=== PATIENT | male | born 1965 | race Caucasian/White ===

== ENCOUNTER 2024-03-04 09:42 | Outpatient (AMB) | payer MEDICAID, SELFPAY ==
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
[2024-03-04 09:51] VITALS: BP 147/78; PULSE 100; RESP 18; TEMP 36.5; O2SAT 94; BMI 25.3
== END 2024-03-04 10:25 | disposition home or self-care (01) ==
LOC: HODSRG 09:42
PROVIDERS: PCP Nurse Practitioner Family; Referring Provider Nurse Practitioner Family; Supervising Provider Surgery; Visit Provider Surgery
DX: Z48.815 Encounter for surgical aftercare following surgery on the digestive system (principal); D12.6 Benign neoplasm of colon, unspecified
CPT/HCPCS: 99213; G0463

== ENCOUNTER → 2024-03-07 | Day surgery (SDC) | payer MEDICAID, SELFPAY ==
[2024-03-05 09:09] VITALS: BMI 25.2
[2024-03-05 10:28] LABS: Basophils % (Auto) 0 % (0-2.5); Eosinophils % (Auto) 0 % (0-10); Hematocrit 48.3 % (41.0-53.0); Hemoglobin 17.3 g/dL (13.5-16.0); Immature Granulocytes % (Auto) 0 % (0-0); Immature Granulocytes Auto 0.01 Thou/mm3 (0.00-0.00); Lymphocytes # (Auto) 0.7 Thou/mm3 (1.0-4.8); Lymphocytes % (Auto) 14 % (10-50); Mean Corpuscular HGB Conc 35.8 g/dl (31.0-37.0); Mean Corpuscular Hemoglobin 36.1 pg (25.0-35.0); Mean Corpuscular Volume 101 fL (80-100); Monocytes # (Auto) 0.7 Thou/mm3 (0.0-0.8); Monocytes % (Auto) 13 % (0-12); Neutrophils # (Auto) 3.7 Thou/mm3 (1.8-7.7); Neutrophils % (Auto) 72 % (37-80); Nucleated Red Blood Cell % 0 /100 WBC (0); Platelet Count 84 Thou/mm3 (140-440); RDW Standard Deviation 50.5 fL (35.1-43.9); Red Blood Count 4.79 Miln/mm3 (4.50-5.90); White Blood Count 5.1 Thou/mm3 (3.8-10.6)
[2024-03-05 10:30] LABS: INR 1.2 (0.9-1.3); Partial Thromboplastin Time 24.6 Seconds (22.0-36.0); Prothrombin Time 12.8 Seconds (9.0-12.2)
[2024-03-05 10:33] LABS: Alanine Aminotransferase 77 U/L (10-49); Albumin, Serum 4.5 gm/dL (3.5-5.0); Albumin/Globulin Ratio 1.3 (1.2-2.2); Alkaline Phosphatase 130 U/L (46-116); Anion Gap 10 (7-16); Aspartate Amino Transferase 128 U/L (0-34); BUN/Creatinine Ratio 6 Ratio (12-20); Bilirubin,Total 3.2 mg/dL (0.3-1.2); Blood Urea Nitrogen 9 mg/dL (9-23); Calcium 9.9 mg/dL (8.3-10.6); Calcium (Corrected) 9.9 mg/dL (8.5-10.1); Carbon Dioxide 28.8 mMol/L (20.0-31.0); Chloride 98 mMol/L (98-107); Creatinine (Component) 1.4 mg/dL (0.6-1.3); Estimated Creatinine Clearance 67.7 mL/min (>60); Globulin 3.4 gm/dL (2.3-3.5); Glucose 116 mg/dL (74-106); Osmolality,Calculated 273 (275-295); Potassium 3.3 mMol/L (3.4-5.1); Sodium 137 mMol/L (136-145); Total Protein 7.9 gm/dL (5.7-8.2); eGFR 59 See Note
--- NOTE | 2024-03-05 14:46 | SUR.PREOP ---
DR HALL REVIEWED AND OKAYED LABS
[2024-03-07 06:36] VITALS: BP 151/86; PULSE 90; RESP 20; TEMP 36.3; O2SAT 95; BMI 25.1
[2024-03-07] MEDS: RINGERS LACTATED 500 ML 500 ML 20 ML IV (06:46)
== END | disposition home or self-care (01) ==
LOC: S2EX 05:58
PROVIDERS: PCP Nurse Practitioner Family; Referring Provider Student in an Organized Health Care Education/Training Program; Visit Provider Student in an Organized Health Care Education/Training Program
PROC: (CPT 36475; principal; 2024-03-07 07:30)
DX: I83.813 Varicose veins of bilateral lower extremities with pain (principal); Z53.9 Procedure and treatment not carried out, unspecified reason
CPT/HCPCS: 36415; 80053; 85025; 85610; 85730; J7120

== ENCOUNTER 2024-04-15 10:38 | Outpatient (RCR) | payer MEDICAID, SELFPAY | END 2024-05-03 23:59 | disposition home or self-care (01) | LOC: SCTC 10:38 | PROVIDERS: PCP Nurse Practitioner Family; Referring Provider Nurse Practitioner Family; Visit Provider Nurse Practitioner Family | DX: D69.6 Thrombocytopenia, unspecified (principal); K74.60 Unspecified cirrhosis of liver; D73.1 Hypersplenism; Z80.42 Family history of malignant neoplasm of prostate; Z80.3 Family history of malignant neoplasm of breast; Z80.41 Family history of malignant neoplasm of ovary; K80.20 Calculus of gallbladder without cholecystitis without obstruction; F10.11 Alcohol abuse, in remission | CPT/HCPCS: 99212; G0463 ==

== ENCOUNTER 2024-05-08 08:21 | Outpatient (CLI) | payer MEDICAID, SELFPAY ==
[2024-05-07 13:32] LABS: Blood Urea Nitrogen 7 mg/dL (9-23); Creatinine (Component) 0.9 mg/dL (0.6-1.3); eGFR > 60 See Note
[2024-05-07 13:35] LABS: INR 1.1 (0.9-1.3); Partial Thromboplastin Time 27.3 Seconds (22.0-36.0)
[2024-05-07 14:22] LABS: Basophils % (Auto) 1 % (0-2.5); Eosinophils # (Auto) 0.1 Thou/mm3 (0.0-0.5); Eosinophils % (Auto) 1 % (0-10); Hematocrit 41.7 % (41.0-53.0); Immature Granulocytes % (Auto) 0 % (0-0); Immature Granulocytes Auto 0.01 Thou/mm3 (0.00-0.00); Lymphocytes # (Auto) 1.3 Thou/mm3 (1.0-4.8); Lymphocytes % (Auto) 28 % (10-50); Mean Corpuscular Hemoglobin 35.4 pg (25.0-35.0); Mean Corpuscular Volume 98 fL (80-100); Monocytes # (Auto) 0.5 Thou/mm3 (0.0-0.8); Monocytes % (Auto) 11 % (0-12); Neutrophils # (Auto) 2.6 Thou/mm3 (1.8-7.7); Neutrophils % (Auto) 59 % (37-80); Nucleated Red Blood Cell % 0 /100 WBC (0); Platelet Count 98 Thou/mm3 (140-440); RDW Standard Deviation 44.9 fL (35.1-43.9); Red Blood Count 4.24 Miln/mm3 (4.50-5.90); White Blood Count 4.5 Thou/mm3 (3.8-10.6)
[2024-05-07 14:51] VITALS: BMI 25.8
[2024-05-08] VITALS (8 sets, daily range): BP systolic 108–150; BP diastolic 77–94; PULSE 79–99; RESP 12–18; TEMP 37.1–37.2; O2SAT 93–96
--- NOTE | 2024-05-08 09:00 | XR_ITS ---
Examination: CT-guided percutaneous bone marrow aspiration right posterior superior iliac crest CT-guided percutaneous bone biopsy deep right posterior superior iliac crest CT pelvis without intravenous contrast Date and time of procedure: May 08 2024 0902 hours INDICATIONS: Thrombocytopenia months Informed consent provided. A timeout was completed verifying correct patient, procedure, site and positioning. Technique: Axial 3 mm sections were obtained for localization of the right posterior superior iliac crest Appropriate area is marked. The patient's site was prepped and draped in sterile fashion Maximal sterile barrier technique utilized, including hand hygiene Local anesthesia was obtained with 1% lidocaine. Low dose protocols were performed. One or more of the following dose reduction techniques were used; automated exposure control, adjustment of the mA and/or KV according to patient size, use of iterative reconstruction technique. Utilizing CT fluoroscopic guidance 14-gauge bone biopsy needle placed in the right posterior superior iliac crest 5 cc marrow aspirate and 5 cm bone core obtained specimens appear adequate Patient appears in stable condition during this procedure. At completion of the procedure, the patient is in satisfactory condition. Estimated blood loss 2 cc Complete pathology report to follow. Impression: Successful CT-guided percutaneous bone marrow aspiration right posterior superior iliac crest Successful CT-guided percutaneous bone biopsy deep right posterior superior iliac crest
[2024-05-08] MEDS: fentaNYL CIT INJ 50 mCg/ML AMP 2ML 75 MCG IVP (09:27)
[2024-05-08 09:40] LABS: Flow Cytometry* See Sep Rpt
== END 2024-05-08 10:11 | disposition home or self-care (01) ==
PROVIDERS: Radiology Diagnostic Radiology; PCP Nurse Practitioner Family; Referring Provider Nurse Practitioner Family; Visit Provider Nurse Practitioner Family
DX: D69.6 Thrombocytopenia, unspecified (principal); Z01.812 Encounter for preprocedural laboratory examination
CPT/HCPCS: 38221; 36415; 77012; 82565; 84520; 85025; 85610; 85730; J3010